=== PATIENT | female | born 1955 | race Caucasian/White ===

== ENCOUNTER 2017-06-03 08:32 | Outpatient (CLI) | payer OTHER ==
--- NOTE | 2017-06-03 11:07 | CT ---
CT ABDOMEN AND PELVIS WITHOUT IV CONTRAST: Date: 06/03/17 HISTORY: Low back pain, greater on the right. Urinary incontinence. FINDINGS: There is punctate, approximately 2.0 mm, nonobstructing calculus in the inferior pole of left kidne y. No additional renal or ureteral calculus is seen bilaterally, and there is no hydronephrosis. The re is symmetric nonspecific bilateral perinephric stranding noted. Lung bases are clear. Degenerative changes are seen in the spine. Vascular calcifications seen in the abdominal aorta and involving the iliac arteries. The liver demonstrates diminished attenuation most compatible with diffuse fatty infiltration. The spleen, pancreas, bilateral adrenal glands, urinary bladder, and uterus demonstrate a grossly no rmal nonenhanced CT appearance. There is a small duodenal diverticulum involving the third portion of the duodenum. No enlarged lymph nodes are seen by CT size criteria. There is a small, fat-containing umbilical hernia. IMPRESSION: 1. Tiny nonobstructing left renal calculus. No additional renal or ureteral calculi are seen bilate rally. 2. Fatty infiltration of the liver. 3. Vascular calcifications. POS: AI
== END 2017-06-03 08:33 | disposition home or self-care (01) ==
LOC: CT 08:32
PROVIDERS: ATTEND Urology
DX: N23 Unspecified renal colic (principal); N20.0 Calculus of kidney; K76.0 Fatty (change of) liver, not elsewhere classified; I70.90 Unspecified atherosclerosis
CPT/HCPCS: 74176